=== PATIENT | female | born 1995 | race Caucasian/White ===

== ENCOUNTER 2022-08-09 12:57 | Emergency (ER) | payer OTHER ==
[2022-08-09 13:01] VITALS: BP 101/60; PULSE 74; RESP 19; TEMP 98; BMI 23.0
[2022-08-09] MEDS ORDERED: ACETAMINOPHEN 500 MG TABLET (FP) PO ONE (14:38)
[2022-08-09] MEDS ORDERED: KETOROLAC TROMETHAMINE 30 MG/1 ML VIAL IM ONE (14:38)
[2022-08-09] MEDS ORDERED: CYCLOBENZAPRINE HCL 10 MG TABLET (FP) PO ONE (14:38)
[2022-08-09] MEDS ORDERED: LIDOCAINE 5% TOPICAL PATCH TP ONE (14:38)
[2022-08-09] MEDS ORDERED: ACETAMINOPHEN 500 MG TABLET (FP) ONE (14:40)
[2022-08-09] MEDS ORDERED: LIDOCAINE 5% TOPICAL PATCH ONE (14:40)
[2022-08-09] MEDS ORDERED: CYCLOBENZAPRINE HCL 10 MG TABLET (FP) ONE (14:40)
[2022-08-09] MEDS ORDERED: KETOROLAC TROMETHAMINE 30 MG/1 ML VIAL ONE (14:40)
[2022-08-09] MEDS ORDERED: LIDOCAINE PATCH REMOVAL MC SCH (22:00)
== END 2022-08-09 15:30 | disposition home or self-care (01) ==
LOC: JERFT 12:57
PROC: 3E0233Z Introduction of Anti-inflammatory into Muscle, Percutaneous Approach (ICD-10-PCS; principal; 2022-08-09)
DX: M54.2 Cervicalgia (principal); M54.6 Pain in thoracic spine; V49.40XA Driver injured in collision with unspecified motor vehicles in traffic accident, initial encounter; Y93.I9 Activity, other involving external motion; Y92.410 Unspecified street and highway as the place of occurrence of the external cause
CPT/HCPCS: 84703; 99284-25

== ENCOUNTER 2023-05-16 08:04 | Inpatient (IN) | payer OTHER ==
[2023-05-16] MEDS: ceFAZolin SODIUM 1 GM VIAL IVPB ONE (02:57)
[2023-05-16 08:27] VITALS: BMI 22.1
[2023-05-16] MEDS ORDERED: morphine SULFATE 4 MG/ML VIAL ONE (08:39)
[2023-05-16] MEDS ORDERED: ACETAMINOPHEN INJECTION 100 ML IVPB ONE (08:40)
[2023-05-16] MEDS ORDERED: ONDANSETRON 4 MG/2 ML VIAL ONE ×2 (08:40→14:30)
[2023-05-16] MEDS: ONDANSETRON 4 MG/2 ML VIAL IVPUSH ONE (08:51)
[2023-05-16] MEDS: ACETAMINOPHEN 1000 MG/100 ML BAG IVPB ONE ×2 (08:51→16:22)
[2023-05-16] MEDS: morphine CARPU-JECT 4 MG/1 ML DISP.SYRIN IVPUSH ONE (08:51)
[2023-05-16] MEDS: SODIUM CHLORIDE 0.9% 500 ML INFUS.BAG IV ONE (09:04)
[2023-05-16 09:22] LABS: BASO % 0.6 % (0-2.0); EOS % 6.3 % (0-4.5); HEMATOCRIT 36.5 % (32.4-45.2); LYMPH % 48.1 % (8-40); MCH 30.4 pg (25.7-33.7); MEAN CELL VOLUME 92.3 fl (80-96); MEAN PLT VOLUME 8.6 fl (7.5-11.1); MONO % 7.7 % (3.8-10.2); NEUT % 37.3 % (42.8-82.8); PLATELET COUNT 310 10^3/uL (134-434); RBC 3.96 M/mm3 (3.60-5.2); RDW 12.9 % (11.6-15.6); WHITE BLOOD COUNT 5.5 K/mm3 (4.0-10.0)
[2023-05-16 09:24] LABS: INR 1.03 (0.83-1.09)
[2023-05-16 09:27] LABS: ACTIVATED PTT 23.8 SECONDS (25.2-36.5)
[2023-05-16 09:53] LABS: CALCIUM 9.4 mg/dL (8.5-10.1)
[2023-05-16 09:54] LABS: ALBUMIN 3.6 g/dl (3.4-5.0); BLOOD UREA NITROGEN 11.6 mg/dL (7-18)
[2023-05-16 09:57] LABS: CREATININE 0.9 mg/dL (0.55-1.3)
[2023-05-16 09:58] LABS: BILIRUBIN,TOTAL 0.4 mg/dL (0.2-1)
[2023-05-16 11:47] LABS: BASO % 0.1 % (0-2.0); EOS % 0.1 % (0-4.5); HEMATOCRIT 31.6 % (32.4-45.2); HEMOGLOBIN 10.4 GM/dL (10.7-15.3); LYMPH % 7.8 % (8-40); MCH 30.4 pg (25.7-33.7); MCHC 32.8 g/dl (32.0-36.0); MEAN CELL VOLUME 92.9 fl (80-96); MEAN PLT VOLUME 8.5 fl (7.5-11.1); MONO % 3.8 % (3.8-10.2); NEUT % 88.2 % (42.8-82.8); PLATELET COUNT 270 10^3/uL (134-434); RBC 3.41 M/mm3 (3.60-5.2); RDW 12.9 % (11.6-15.6); WHITE BLOOD COUNT 14.5 K/mm3 (4.0-10.0)
[2023-05-16] MEDS ORDERED: PROPOFOL 20 ML ONE (14:29)
[2023-05-16] MEDS ORDERED: FENTANYL CITRATE/PF 50 MCG/ML VIAL ONE ×6 (14:29→17:02)
[2023-05-16] MEDS ORDERED: DEXAMETHASONE SOD PHOSPHATE 4 MG/1 ML VIAL ONE (14:30)
[2023-05-16] MEDS ORDERED: LIDOCAINE HCL/PF 2% SDV 5ML VIAL ONE (14:30)
[2023-05-16] MEDS ORDERED: ceFAZolin SODIUM 1 GM VIAL ONE (14:30)
[2023-05-16] MEDS ORDERED: ROCURONIUM BROMIDE 50 MG/5 ML SYRINGE ONE (14:30)
[2023-05-16] MEDS ORDERED: MIDAZOLAM HCL 2 MG/2 ML SINGLE DOSE VIAL ONE (14:30)
[2023-05-16] MEDS ORDERED: oxyCODONE HCL 5 MG TABLET PO PRN ×2 (14:37)
[2023-05-16] MEDS ORDERED: PROMETHAZINE HCL 25 MG/1 ML VIAL IVPB PRN ×2 (14:37→16:15)
[2023-05-16] MEDS ORDERED: ONDANSETRON 4 MG/2 ML VIAL IVPUSH PRN ×2 (14:37→16:15)
[2023-05-16] MEDS ORDERED: ACETAMINOPHEN 1000 MG/100 ML BAG IVPB PRN (14:39)
[2023-05-16] MEDS ORDERED: LACTATED RINGERS SOLUTION 1,000 ML IV SCH (14:45)
[2023-05-16] MEDS ORDERED: BUPIVACAINE HCL/PF 0.5% (5MG/ML) 10 ML VIAL ONE (15:02)
[2023-05-16] MEDS ORDERED: GLYCOPYRROLATE 0.2 MG/1 ML VIAL ONE (15:17)
[2023-05-16] MEDS ORDERED: NEOSTIGMINE METHYLSULFATE 0.5 MG/1 ML - 10 ML MDV ONE (15:17)
[2023-05-16] MEDS: BUPIVACAINE HCL/PF 0.5% (5MG/ML) 10 ML VIAL IJ ONE (15:34)
[2023-05-16] MEDS ORDERED: oxyCODONE HCL 5 MG TABLET ONE (18:20)
[2023-05-16] MEDS: oxyCODONE HCL 5 MG TABLET PO PRN (18:22)
[2023-05-17] MEDS: ACETAMINOPHEN 1000 MG/100 ML BAG IVPB PRN (00:29)
[2023-05-17] MEDS: LACTATED RINGERS SOLUTION 1,000 ML IV SCH (00:32)
[2023-05-17 07:28] LABS: BASO % 0.2 % (0-2.0); EOS % 0.2 % (0-4.5); HEMATOCRIT 25.2 % (32.4-45.2); HEMOGLOBIN 8.4 GM/dL (10.7-15.3); MCHC 33.1 g/dl (32.0-36.0); MEAN CELL VOLUME 93.6 fl (80-96); MEAN PLT VOLUME 8.9 fl (7.5-11.1); MONO % 7.4 % (3.8-10.2); NEUT % 78.2 % (42.8-82.8); PLATELET COUNT 201 10^3/uL (134-434); RDW 12.9 % (11.6-15.6); WHITE BLOOD COUNT 14.8 K/mm3 (4.0-10.0)
[2023-05-17 07:54] LABS: POTASSIUM 3.8 mmol/L (3.5-5.1)
[2023-05-17 07:55] LABS: CALCIUM 8.3 mg/dL (8.5-10.1)
[2023-05-17 07:56] LABS: BLOOD UREA NITROGEN 5.3 mg/dL (7-18)
[2023-05-17 07:59] LABS: CREATININE 0.6 mg/dL (0.55-1.3)
[2023-05-17 08:08] LABS: ALBUMIN 2.6 g/dl (3.4-5.0); BILIRUBIN,TOTAL 0.5 mg/dL (0.2-1)
[2023-05-17 10:28] VITALS: BP 106/63; PULSE 91; RESP 17; TEMP 98.9
== END 2023-05-17 13:00 | disposition home or self-care (01) | DRG 819 ==
LOC: JER 08:04 → JERBED 13:59 → J3W 19:39
PROVIDERS: ADMIT Obstetrics & Gynecology; ATTEND Obstetrics & Gynecology
PROC: 0UB64ZZ Excision of Left Fallopian Tube, Percutaneous Endoscopic Approach (ICD-10-PCS; 2023-05-16)
PROC: 10T24ZZ Resection of Products of Conception, Ectopic, Percutaneous Endoscopic Approach (ICD-10-PCS; principal; 2023-05-16 14:00)
DX: O00.102 Left tubal pregnancy without intrauterine pregnancy (principal)
CPT/HCPCS: 36415; 76817-TC; 80053; 84702; 85025; 85610; 85730; 86850; 86900; 86901; 87040; 88305-TC; 93005; 93010; 94760; 99285-25; J0131